=== PATIENT | male | born 1980 | race American Indian/Alaskan Native ===

== ENCOUNTER 2021-12-25 23:26 | Emergency (ER) | payer SELFPAY ==
[2021-12-26 01:40] VITALS: BP 123/79
[2021-12-26] MEDS ORDERED: ACETAMINOPHEN 500 MG TAB PO ONE (02:17)
[2021-12-26] MEDS ORDERED: IBUPROFEN 600 MG TAB PO ONE (02:17)
[2021-12-26] MEDS ORDERED: predniSONE 20 MG TAB PO ONE (02:17)
--- NOTE | 2021-12-26 03:52 | Emergency Department Report ---
ED Extremity Problem HPI - General Chief complaint: Extremity Injury, Upper Stated complaint: ARM ISSUES Source: patient Mode of arrival: Ambulatory Limitations: No Limitations - History of Present Illness Initial comments: Patient is a 41-year-old -[place] male with a history of insulin- dependent diabetes who presented to the ED with complaint of acute onset persistent nontraumatic right elbow and right wrist pain with mild swelling for the last 2 days. Patient states that the pain is worse with any active range of motion of right wrist and right elbow. Patient denies fall, traumatic injury, heavy lifting, chest pain or shortness of breath, dizziness, syncope, neck pain, headache, nausea and vomiting, fever and chills, numbness and tingling or weakness of upper extremities bilaterally. MD Complaint: extremity pain (right elbow and wrist pain), joint paint (right elbow and wrist pain) -: Sudden, days(s) (2) Location: right, upper extremity (right elbow and wrist pain) History of Same: No -: Yes arthralgia, No fever, No associated dyspnea, No associated chest pain Severity scale (0 -10): 6 Quality: aching, sharp Consistency: constant Improves with: nothing Worsens with: weight bearing, exertion, palpation Associated Symptoms: denies other symptoms, arthralgias. denies: chest pain, shortness of breath, fever, myalgias, rash, other - Related Data Previous Rx's Medication Instructions Recorded Last Taken Type Baclofen 20 mg PO Q12H PRN #20 tab 12/26/21 Unknown Rx Naproxen 500 mg PO Q12H PRN #30 tab 12/26/21 Unknown Rx predniSONE [Deltasone] 60 mg PO QDAY #15 tab 12/26/21 Unknown Rx Allergies Allergy/AdvReac Type Severity Reaction Status Date / Time No Known Allergies Allergy Verified 12/26/21 01:39 ED Review of Systems ROS: Stated complaint: ARM ISSUES Other details as noted in HPI Constitutional: denies: chills, fever Eyes: denies: eye pain, eye discharge, vision change ENT: denies: ear pain, throat pain Respiratory: denies: cough, shortness of breath, wheezing Cardiovascular: denies: chest pain, palpitations Endocrine: no symptoms reported Gastrointestinal: denies: abdominal pain, nausea, diarrhea Genitourinary: denies: urgency, dysuria Musculoskeletal: joint swelling, arthralgia (Right elbow and wrist pain with mild swelling). denies: back pain Skin: denies: rash, lesions Neurological: denies: headache, weakness, paresthesias Psychiatric: denies: anxiety, depression Hematological/Lymphatic: denies: easy bleeding, easy bruising ED Past Medical Hx - Past Medical History Previous Medical History?: Yes Hx Diabetes: Yes (IDDM) - Surgical History Past Surgical History?: No - Medications Home Medications: Home Medications Medication Instructions Recorded Confirmed Last Taken Type Baclofen 20 mg PO Q12H PRN #20 tab 12/26/21 Unknown Rx Naproxen 500 mg PO Q12H PRN #30 tab 12/26/21 Unknown Rx predniSONE [Deltasone] 60 mg PO QDAY #15 tab 12/26/21 Unknown Rx ED Physical Exam - General Limitations: No Limitations General appearance: alert, in no apparent distress - Head Head exam: Present: atraumatic, normocephalic, normal inspection - Eye Eye exam: Present: normal appearance, PERRL, EOMI Pupils: Present: normal accommodation - ENT ENT exam: Present: normal exam, normal orophraynx, mucous membranes moist, TM's normal bilaterally, normal external ear exam - Neck Neck exam: Present: normal inspection, full ROM. Absent: tenderness - Respiratory Respiratory exam: Present: normal lung sounds bilaterally. Absent: respiratory distress, wheezes, rales, rhonchi, chest wall tenderness, accessory muscle use, decreased breath sounds, prolonged expiratory - Cardiovascular Cardiovascular Exam: Present: regular rate, normal rhythm, normal heart sounds. Absent: systolic murmur, diastolic murmur, rubs, gallop - GI/Abdominal GI/Abdominal exam: Present: soft, normal bowel sounds. Absent: tenderness, guarding, rebound, hyperactive bowel sounds, hypoactive bowel sounds, organomegaly, mass - Extremities Exam Extremities exam: Present: normal inspection, full ROM, tenderness (Palpable right elbow and wrist tenderness), normal capillary refill. Absent: pedal edema, joint swelling, calf tenderness - Back Exam Back exam: Present: normal inspection, full ROM. Absent: tenderness, CVA tenderness (R), CVA tenderness (L), muscle spasm, paraspinal tenderness, vertebral tenderness - Neurological Exam Neurological exam: Present: alert, oriented X3, CN II-XII intact, normal gait, reflexes normal - Psychiatric Psychiatric exam: Present: normal affect, normal mood - Skin Skin exam: Present: warm, dry, intact, normal color. Absent: rash ED Course Vital Signs 12/26/21 01:23 Temperature 98.5 F Pulse Rate 93 H Respiratory 17 Rate Blood Pressure 123/79 [Right] O2 Sat by Pulse 99 Oximetry ED Medical Decision Making - Medical Decision Making This is a 41-year-old -[place] male with a history of insulin-dependent diabetes who presented to the ED with complaint of acute onset persistent nontraumatic right elbow and right wrist pain with mild swelling for the last 2 days. Patient states that the pain is worse with any active range of motion of right wrist and right elbow. In the ED, patient is alert and oriented x3 and is not in any distress. Patient was treated for pain in the ED. Lab test results were reviewed and are all nonactionable. Patient symptoms are likely due to muscle strain, bursitis and tendinitis since uric acid test was normal. Patient was therefore discharged home on medications and advised to follow-up with his primary care physician in 5 to 7 days for reevaluation or return to the ED immediately if symptoms get worse. - Differential Diagnosis Muscle strain; tendinitis; bursitis; gouty arthropathy; arthritis Critical care attestation.: If time is entered above; I have spent that time in minutes in the direct care of this critically ill patient, excluding procedure time. ED Disposition Clinical Impression: Tendinitis of right wrist Bursitis of right elbow Qualifiers: Elbow bursitis location: unspecified Qualified Code(s): M70.31 - Other bursitis of elbow, right elbow Muscle strain of right forearm Qualifiers: Encounter type: initial encounter Qualified Code(s): S56.911A - Strain of unspecified muscles, fascia and tendons at forearm level, right arm, initial encounter Disposition: HOME / SELF CARE / HOMELESS Is pt being admited?: No Does the pt Need Aspirin: No Condition: Stable Instructions: Muscle Strain, [id number], Elbow Bursitis, [id number], Tendinitis, [id number] Additional Instructions: Lab test results were reviewed and are all nonactionable. Your symptoms are not due to gout. Therefore it is likely that your symptoms are likely due to muscle strain or tendinitis of the wrist or bursitis of the elbow joint. Therefore take medications with food, drink plenty of fluids and follow-up with your primary care physician in 5 to 7 days for reevaluation. Return to the ED immediately if symptoms get worse. Prescriptions: Baclofen 20 mg PO Q12H PRN #20 tab PRN Reason: Muscle Spasm predniSONE [Deltasone] 60 mg PO QDAY #15 tab Naproxen 500 mg PO Q12H PRN #30 tab PRN Reason: Pain , Severe (7-10) Referrals: [facility] [Provider Group] - 7-10 days Forms: Work/School Release Form(ED) Time of Disposition: 03:50 Print Language: [place]
== END 2021-12-26 04:29 | disposition home or self-care (01) ==
LOC: ED 23:26
DX: S56.911A Strain of unspecified muscles, fascia and tendons at forearm level, right arm, initial encounter (principal); M77.21 Periarthritis, right wrist; M70.31 Other bursitis of elbow, right elbow; E11.8 Type 2 diabetes mellitus with unspecified complications; X58.XXXA Exposure to other specified factors, initial encounter; Y93.89 Activity, other specified; Y92.89 Other specified places as the place of occurrence of the external cause; Y99.8 Other external cause status
CPT/HCPCS: 36415; 84550; 99283